=== PATIENT | female | born 1945 | race Caucasian/White ===

== ENCOUNTER 2017-06-30 20:10 | Inpatient (IN) | payer OTHER ==
[~2017-06-30] VITALS: Ht 152.4 cm; Wt 65.5 kg
--- NOTE | 2017-06-30 21:21 | NUR ---
PT C/O LT UPPER ARM PAIN, NOT MOVING IT. GOOD SENSATION TO ALL FINGERS, STRONG RADIAL PULSE. ALSO PURPLE DISCOLORATION & SWELLING TO LT GREAT TOE. TODAY @ 1830 SHE WAS ABOUT TO CLIMB UP A LADDER, STOOD ON 1ST STEP BUT IT WASN'T STEADY SO SHE FELL BACKWARDS HITTING ARM ON BRICK MOW STRIP. NOT SURE WHAT HAPPENED TO TOE, WAS WEARING SANDALS WHEN SHE FELL. DENIES HEAD, NECK OR BACK PAIN. DENIES LOC. DENIES CURRENT ILLNESS.
--- NOTE | 2017-06-30 21:21 | NUR ---
MED IM PER ORDER.
--- NOTE | 2017-06-30 21:38 | NUR ---
TOE X-RAYS IN PROGRESS.
--- NOTE | 2017-06-30 22:04 | NUR ---
UPDATE- IV PLACED, LABS DRAWN, MRSA SENT. PT AND HER DAUGHTER AWARE OF ADMISSION AND PROBABLE SURGERY.
--- NOTE | 2017-06-30 22:04 | NUR ---
BILAT NARES SWABBED FOR MRSA SCREENING.
--- NOTE | 2017-06-30 22:06 | NUR ---
PT'S DAUGHT TOOK 2 RINGS FROM PT- IS KEEPING HER GLASSES. NO OTHER VALUABLES. EMT TO PERFORM 12 LEAD AND APPLY SLING AND ORTHO SHOE. PT GETS HER MEDS BY MAIL, UNABLE TO VERIFY MED REDONCILIATION.
--- NOTE | 2017-06-30 22:09 | NUR ---
PT STATES FILLS HER RX @ [facility]. CALLED [facility], NO CURRENT RX, JUST TEMAZEPEM 30 MG & FLUOXETINE 10 MG LAST FILLED 2015. SPOKE W/ PT AGAIN, THEN SHE STATED SHE USES A MAIL ORDER PHARMACY.
[2017-06-30 22:14] LABS: PLATELET COUNT 311 x10^3mcL (130-400); RED CELL DISTRIBUTION WIDTH 13.4 % (11.5-14.5)
--- NOTE | 2017-06-30 22:18 | NUR ---
REPORT TO OSIEL ON TELE.
--- NOTE | 2017-06-30 22:23 | NUR ---
MED PER ORDER FOR 10/10 LT UPPER ARM PAIN.
[2017-06-30 22:25] LABS: CALCIUM 10.1 mg/dL (8.5-10.1); CARBON DIOXIDE 20.9 mmol/L (21-32); POTASSIUM SERUM 3.4 mmol/L (3.5-5.1)
[2017-06-30] MEDS ORDERED: TEMAZEPAM30 MG (22:35)
[2017-06-30 22:39] LABS: FREE T4 1.17 ng/dL (0.76-1.46)
[2017-06-30 22:51] VITALS: BP 148/66
--- NOTE | 2017-06-30 22:55 | NUR ---
RECEIVED PT FROM ED VIA [facility]IS MANUEL. ORIENTED PT TO ROOM AND SURROUNDINGS. IV NOTED TO RIGHT HAND PATENT AND INTACT. TELE 28 PLACED ON PT READING NSR. INSTRUCTED PT ON THE USE OF CALL LIGHT FOR ASSISTANCE. ENDORSED PT TO PRIMARY NURSE LORI
[2017-06-30 23:00] LABS: BAND NEUTROPHIL 1 % (0-10); CHOLESTEROL/HDL RATIO 3.5; MAGNESIUM 1.9 mg/dL (1.8-2.4); METAMYELOCTE 1 % (0-2); MONOCYTE 6 % (0-7); PHOSPHOROUS 1.1 mg/dL (2.5-4.9); SEGMENTED NEUTROPHILS 86 % (37-75)
--- NOTE | 2017-06-30 23:00 | NUR ---
RECEIVED REPORT FROM CITLALI NUÑEZ. PT IS A&O X4. ABLE TO FOLLOW COMMANDS, ABLE TO MAKE NEEDS KNOWN. CLEAR LUNG SOUNDS TO BILAT LOBES. BREATHING IS EVEN AND UNLABORED. PT IS ABLE TO AMBULATE. SLING IN PLACE TO LEFT ARM. BOOT IN PLACE TO LEFT FOOT. PT C/O 06/06 TO ARM. WILL CHECK EMAR FOR PRN MEDICATIONS. HOB AT 45 DEGREES. CALL LIGHT WITHIN REACH. WILL CONTINUE TO MONITOR FOR ANY ACUTE CHANGES.
[2017-06-30 23:01] LABS: PLATELET MORPHOLOGY PLATELETS NORMAL; rbc morphology (normal/abnorm) NORMAL (NORMAL)
[2017-07-01] MEDS ORDERED: ATORVASTATIN CA20 M1 PO (00:24)
[2017-07-01] MEDS ORDERED: LEVOTHYROXINE0.05 M2 PO (00:25)
--- NOTE | 2017-07-01 00:50 | NUR ---
PT FEELING ANXIOUS. DR TRACEY CALLED FOR NEW ORDER.
[2017-07-01 05:18] VITALS: BP 100/52
[2017-07-01 06:34] LABS: BASOPHIL % 0.4 % (0-2); PLATELET COUNT 262 x10^3mcL (130-400); RED CELL DISTRIBUTION WIDTH 13.5 % (11.5-14.5)
--- NOTE | 2017-07-01 07:51 | NUR ---
PT COMPLAINING OF LUE PAIN 09/06. MEDICATED WITH 1MG DILAUDID PER MD ORDER. PT EDUCATED ON USING CALL LIGHT IF NEEDING ASSISTANCE TO BR DUE TO MEDICATION SIDE EFFECTS. PT VERBALIZED UNDERSTANDING. WILL CONTINUE TO MONITOR.
--- NOTE | 2017-07-01 08:00 | NUR ---
RC'D PT RESTING IN BED COMPLAINING OF PAIN ON LUE 09/06. MEDICATED WITH DILAUDID PER MD ORDER. PT A/A/O/X4, SPEECH CLEAR AND APPROPRIATE. ON TELE 28 WITH NSR. DENIES CHEST PAIN/PRESSURE AT THIS TIME. PALP PULSES, NO EDEMA NOTED. SLING ON LUE NOTED. BOOT ON LLE PRESENT. SCDS PRESENT ON BILAT LE. RESPIRATIONS EQUAL AND UNLABORED BILAT. LUNGS CLEAR TO AUSCULTATION. DENIES SOB. ACTIVE BS X4. ABDOMEN SOFT AND NONTENDER. DENIES N/V. VOIDS FREELY. DENIES BURNING. PT AMBULATES WITH SLOW STEADY GAIT WITH BRP. SKIN W/D/I. RAC IV RUNNING NS AT 80 ML, WNL. PT IS CALM AND COOPERATIVE. FAMILY PRESENT AT BEDSIDE. EDUCATED PT ON USING CALL LIGHT WHEN NEEDING ASSISTANCE. CALL LIGHT IN REACH. BED IN LOW POSITION. WILL CONTINUE TO MONITOR.
--- NOTE | 2017-07-01 08:33 | NUR ---
DR. ASHTON AND MED TEAM PRESENT AT BEDSIDE FOR AM ROUNDS. DISCUSSED WITH PT SURGERY OF THE LUE SCHEDULED FOR TODAY AT 1030. PT AGREED AND VERBALIZED UNDERSTANIDING. NO NEW ORDERS AT THIS TIME.
--- NOTE | 2017-07-01 09:45 | NUR ---
MORNING MEDICATIONS HELD DUE TO PT NPO FOR PENDING UPCOMING SURGERY.
--- NOTE | 2017-07-01 10:00 | NUR ---
PT TAKEN DOWN TO OR WITH NO APPARENT SIGNS OF DISTRESS NOTED. TELE MONITOR NOTIFIED.
[2017-07-01 10:27] VITALS: BP 107/45
--- NOTE | 2017-07-01 13:30 | NUR ---
PT RETURNED FROM OR POST OP ORIF LEFT HUMERUS. NOTED LEFT ARM IN SPLINT UP TO THE ELBOW WITH VISIBLE BANDAGE AT THE SHOULDER. DRESSING CLEAN, DRY, AND INTACT. LEFT ARM IN A SLING ELEVATED ON A PILLOW. PT WITH GOOD SENSATION, GOOD CAP REFILL AND ABILITY TO MOVE ALL DIGITS AND HAND. PT DENIES ANY PAIN/NAUSEA AT THIS TIME. NOTED OREDERS FOR TRAPEZE AND MONITOR CONTINOUS PULSE RATE. NOTIFIED RT AND PT FOR PLACEMENT OF EQUIPMENT. MADE AWARE BY PT THAT ATTENDINGS NEED TO PLACE TRAPEZE. PAGE GATED DR. ALCANTAR FOR NEED OF TRAPEZE PLACEMENT AND FOR POST OP ORDERS. AWAITING ORDERS. WILL CONTINUE TO MONITOR.
--- NOTE | 2017-07-01 14:20 | NUR ---
DR. ALCANTAR AT BEDSIDE PLACING TRAPEZE. RT PLACED CONTINOUS PULSE RATE/OX ORDERED TO BE KEPT IN PLACE FOR THE NEXT 24 HOURS. WILL CONTINUE TO MONITOR.
--- NOTE | 2017-07-01 16:17 | NUR ---
PT RESTING IN BED WITH FAMILY PRESENT AT BEDSIDE. REPORTS PAIN OF 4/10 BUT DOES NOT WANT MEDICATION AT THIS TIME. PT HAS GOOD SENSATION IN DIGITS, GOOD CAP REFILL AND ABILITY TO MOVE ALL DIGITS. PULSE OX READING 98% O2 WITH A HR OF 97. DR. ALCANTAR PAGED TO OBTAIN A DIET FOR PT. AWAITING NEW ORDERS. WILL CONTINUE TO MONITOR.
[2017-07-01 16:49] VITALS: BP 104/42
--- NOTE | 2017-07-01 18:00 | NUR ---
PT MEDICATED WITH NORCO FOR LUE 6/10 PAIN PER MD ORDER. PT ABLE TO MOVE HAND AND ALL DIGITS ON LUE. PT HAS GOOD SENSATION AND GOOD CAP REFILL ON LE. LEFT EXTREMITY IN SLING AND ELEVATED ON TWO PILLOWS. POST OP VOID OF 800ML. FAMILY PRESENT AT BEDSIDE. CALL LIGHT IN REACH. BED IN LOW POSITION.
[2017-07-01 19:44] LABS: microscopic required? YES; urine erythrocyte TRACE (NEGATIVE)
--- NOTE | 2017-07-01 20:36 | NUR ---
PT AAO X4 MONEGAS[place] SPEAKING, INTACT DRESSING TO LUE S/P ORIF LT HUMERUS FX, NO BLEEDING WITH SLING FOR IMMOBILIZER, C/O PAIN ONLY DURING MOBILITY MEDICATED PER PRN ORDER, ABLE TO MOVE LT FINGERS, PALPABLE PULSES, NO DISTRESS LUNGS CTA IVF NS INFUSING @ 80CC/HR IV ACCESS @ RAC PATENT NON INFIL, TELE #28 INPLACED NSR IN THE MONITOR NO CP OR PRESSURE, SHIFT ASSESSMENT DONE, ATTENDED NEEDS CALL LIGHT AT REACH, CONT TO MONITOR.
[2017-07-01 20:39] VITALS: BP 105/55
--- NOTE | 2017-07-01 21:59 | NUR ---
PAGED DR MAYNARD, PT ASKING FOR SLEEPING PILLS, AWAITING FOR CALL BACK.
--- NOTE | 2017-07-01 23:38 | NUR ---
ATIVAN PO GIVEN FOR ANXIOUS BEHAV M/B INABILITY TO SLEEP, MINIMIZE ROOM STIMULATION, PT ALSO C/O LT ARM PAIN SURG SITE S/P ORIF, 05/07 PER ASSESSMENT MEDICATED PRN FOR PAIN, CONT TO MONITOR.
[2017-07-02] VITALS (7 sets, daily range): BP systolic 87–103; BP diastolic 36–46
--- NOTE | 2017-07-02 05:32 | NUR ---
NO SIGNIFICANT CHANGES DURING THE SHIFT, PULSE RATE MONITOR INPLACED, HR 80-115 NO CP OR PRESSURE, SATURATING 98% IN RA, AMBULATES TO THE BATHROOM ADLIB, LT SURGICAL SITE DRESSING INPLACED NO SIGNS OF BLEEDING WITH SLING ON PT DENIES PAIN AT THIS TIME, WILL CONT TO MONITOR.
--- NOTE | 2017-07-02 05:57 | NUR ---
BP 92/39; MAP 64; HR 92; SATURATING 97% RA, ASYMTOMATIC, DR PISANO AWARE OF PT'S BP NNO AT THIS TIME WILL MONITOR.
[2017-07-02 06:11] LABS: BASOPHIL % 0.1 % (0-2); PLATELET COUNT 218 x10^3mcL (130-400); RED CELL DISTRIBUTION WIDTH 13.4 % (11.5-14.5)
[2017-07-02 06:28] LABS: CALCIUM 9.1 mg/dL (8.5-10.1); CARBON DIOXIDE 24.3 mmol/L (21-32); CHLORIDE SERUM 110 mmol/L (98-107); CREATININE SERUM 0.8 mg/dL (0.6-1.0); GFR1 > 60 mL/min; GLUCOSE SERUM 113 mg/dL (74-106); MAGNESIUM 1.9 mg/dL (1.8-2.4); PHOSPHOROUS 2.1 mg/dL (2.5-4.9); POTASSIUM SERUM 4.1 mmol/L (3.5-5.1); SODIUM SERUM 139 mmol/L (136-145)
--- NOTE | 2017-07-02 07:45 | NUR ---
RC'D PT RESTING IN BED WITH NO APPARENT SIGNS OF DISTRESS. A/A/O/X4, SPEECH CLEAR AND APPROPRIATE. ON TELE 28 WITH NSR. DENIES CHEST PAIN/PRESSURE AT THIS TIME. ON RA WITH O2 AT 98%. LUNGS CLEAR TO AUSCULTATION. RESPIRATIONS EQUAL AND UNLABORED BILAT. PALP PULSES, NO EDEMA NOTED. CONTINOUS MONITORING PRESENT OF PULSE/OX ON LUE PER MD ORDER. LUE SLING AND SPLINT PRESENT. NO DRAINAGE NOTED. PT HAS GOOD SENSATION, CAP REFILL AND ABILITY TO MOVE ALL DIGITS AND HAND OF LUE. ACTIVE BS X4. DENIES DISCOMFORT. ABDOMEN SOFT AND ROUND. VOIDS FREELY, DENIES BURNING. AMBULATORY WITH BRP. SKIN W/D/I. RAC IV RUNNING NS AT 80MLS/HR. PT IS PLEASANT AND COOPERATIVE. CALL LIGHT IN REACH BED IN LOW POSITION. WILL CONTINUE TO MONITOR.
--- NOTE | 2017-07-02 09:48 | NUR ---
NO RESPONSE FROM PAGE SENT TO DR. FELIPE. PAGE GATE SENT TO REPORT REPEAT B/P WHILE SITTING UP IN BED OF 89/46 MAP 60. AWAITING ORDERS.
--- NOTE | 2017-07-02 11:30 | NUR ---
DR. FELIPE MADE AWARE OF LATEST B/P POST AMBULATION WITH PT AT REST, CURRENTLY 94/42 MAP 65. NO NEW ORDERS WILL CONT TO MONITOR.
--- NOTE | 2017-07-02 13:30 | NUR ---
DR. FELIPE PAGED AND MADE AWARE OF B/P 93/39 MAP 57. REQUESTED FOR B/P TO BE RECHECKED. AT THIS TIME B/P 94/44 WITH MAP 65. PAGE GATE SENT TO TO UPDATE ON B/P. AWAITING ORDERS.
--- NOTE | 2017-07-02 15:30 | NUR ---
DR. FELIPE IN TO SPEAK WITH PT AND FAMILY. MD NOTIFIED PT OF PLAN D/C HOME. FAMILY AND PT REQUESTING D/C SINCE PT FEELS SHE WILL REST MORE COMFORTABLY AT HOME. AWAITING COMPLETION OF D/C ORDERS.
[2017-07-02] MEDS ORDERED: APAP/HYDROCODON1 T13 PO (15:31)
[2017-07-02] MEDS ORDERED: ZES5 PO (15:33)
[2017-07-02] MEDS ORDERED: MAC100 PO (16:17)
--- NOTE | 2017-07-02 17:15 | NUR ---
PT/ PROVIDED WITH D/C HOME INSTRUCTIONS. GIVEN MEDICATION/PRESCRIPTION EDUCATION. MADE AWARE PT HAS MEDICATIONS PRESCRIPTIONS ALREADY SENT TO PHARMACY ALONG WITH WRITTEN RX FOR NORCO. PT INSTRUCTED TO COMPLETE ATB TX ORDER. PROVIDED WITH VERBAL AND WRITEN DIABETIC EDUCATION. MADE AWARE OF F/U APPT WITH PCP AND WITH SURGEON DR. RABAGO. PT INSTRUCTED TO KEEP LT ARM SPLINT/SURGICAL AREA CLEAN AND DRY. NOT TO WET AREA WHEN SHOWERING. PT TO MAINTAIN ARM IN SLING AND KEEP ELEVATED. PT VERBALIZED UNDERSTANDING OF INSTRUCTIONS. TELE AND IV D/C'D CATHETER INTACT. PT TRANSPORTED TO [facility] VIA ACCOMPANIED BY AND MAILING MACHINE ASSISTANT WITH ALL PERSONAL BELONGING. FREE OF ANY APPARENT DISTRESS.
== END 2017-07-02 17:14 | disposition home or self-care (01) | DRG 492 ==
LOC: ED 20:10 → DU 21:46
PROVIDERS: Emergency Medicine; Neuromusculoskeletal Medicine, Sports Medicine; ADMIT Family Medicine
PROC: 0PSG04Z Reposition Left Humeral Shaft with Internal Fixation Device, Open Approach (ICD-10-PCS; principal; 2017-07-01 10:30)
DX: S42.412A Displaced simple supracondylar fracture without intercondylar fracture of left humerus, initial encounter for closed fracture (principal); E43 Unspecified severe protein-calorie malnutrition; S42.345A Nondisplaced spiral fracture of shaft of humerus, left arm, initial encounter for closed fracture; N39.0 Urinary tract infection, site not specified; R31.9 Hematuria, unspecified; E87.6 Hypokalemia; R73.03 Prediabetes; R10.84 Generalized abdominal pain; E03.9 Hypothyroidism, unspecified; E78.5 Hyperlipidemia, unspecified; M19.90 Unspecified osteoarthritis, unspecified site; Z68.28 Body mass index [BMI] 28.0-28.9, adult; W11.XXXA Fall on and from ladder, initial encounter; Y93.H2 Activity, gardening and landscaping; Y92.017 Garden or yard in single-family (private) house as the place of occurrence of the external cause
CPT/HCPCS: 82962; 83880; 84439; 94150; C1713; J0690; J1170; J2405; J2704; J2710; J3010; J3490; J7030; J7120; Q0092